=== PATIENT | female | born 1970 | race Two or more races ===

== ENCOUNTER 2018-05-03 09:28 | Emergency (ER) | payer MEDICAID ==
[~2018-05-03] VITALS: Ht 157.5 cm; Wt 72.6 kg
[2018-05-03 09:41] VITALS: BP 137/77
[2018-05-03] MEDS ORDERED: diphenhdrAMINE HCL 25 MG CAP PO ONE (10:30)
[2018-05-03] MEDS ORDERED: KETOROLAC TROMETH 60MG/2ML VIAL IM ONE (10:30)
[2018-05-03] MEDS ORDERED: ONDANSETRON ODT 4 MG TAB PO ONE (10:30)
== END 2018-05-03 11:43 | disposition home or self-care (01) ==
LOC: ER 09:28
DX: R51 Headache (principal); I10 Essential (primary) hypertension; Z88.8 Allergy status to other drugs, medicaments and biological substances
CPT/HCPCS: 96372; 99283; J1885; Q0162